=== PATIENT | female | born 1980 | race Caucasian/White ===

== ENCOUNTER 2018-12-06 19:38 | Emergency (ER) | payer SELFPAY, OTHER ==
[2018-12-06 23:39] LABS: URINE BLOOD (Dip) POC Negative (NEGATIVE); URINE GLUCOSE (Dip) POC Negative (NEGATIVE); URINE KETONES (Dip) POC Negative (NEGATIVE); URINE LEUKOCYTE EST (Dip) POC Trace (NEGATIVE); URINE NITRITE (Dip) POC Negative (NEGATIVE); URINE TOTAL PROTEIN POC Negative (NEGATIVE)
[2018-12-06] MEDS: ONDANSETRON (ODT) 4 MG TAB ODT (23:58)
[2018-12-06] MEDS: KETOROLAC 60 MG INJ IM (23:58)
== END 2018-12-07 00:27 | disposition home or self-care (01) ==
LOC: E/R 12-07 00:27
DX: R10.9 Unspecified abdominal pain (principal); R11.10 Vomiting, unspecified
CPT/HCPCS: 81003; 81025; 96372; 99284-25